=== PATIENT | male | born 1980 | race Native Hawaiian/Other Pacific Islander ===

== ENCOUNTER 2019-02-02 09:14 | Outpatient (CLI) | payer OTHER ==
[2019-02-02 10:06] LABS: PLATELET COUNT 327 K/uL (142-355)
[2019-02-02 14:16] LABS: POTASSIUM 4.9 mmol/L (3.6-5.2)
== END 2019-02-02 19:54 | disposition home or self-care (01) ==
LOC: LABW 09:14
PROVIDERS: Internal Medicine
DX: Q90.9 Down syndrome, unspecified (principal); R63.4 Abnormal weight loss; M25.552 Pain in left hip; M25.551 Pain in right hip; Z79.899 Other long term (current) drug therapy
CPT/HCPCS: 36415; 80053; 80061; 82306; 83036; 84443; 85027

== ENCOUNTER 2019-02-07 14:52 | Outpatient (CLI) | payer OTHER | END 2019-02-07 19:15 | disposition home or self-care (01) | LOC: LAB 14:52 | DX: E58 Dietary calcium deficiency (principal); R53.83 Other fatigue; E53.8 Deficiency of other specified B group vitamins | CPT/HCPCS: 82607; 82746 ==